=== PATIENT | female | born 1945 | race Caucasian/White ===

== ENCOUNTER 2021-02-01 10:53 | Outpatient (CLI) | payer MEDICARE, OTHER | END 2021-02-01 23:59 | disposition home or self-care (01) | LOC: CVU 10:53 | PROVIDERS: ATTEND Physician Assistant | DX: I08.8 Other rheumatic multiple valve diseases (principal); I11.9 Hypertensive heart disease without heart failure; J90 Pleural effusion, not elsewhere classified | CPT/HCPCS: 93306 ==